=== PATIENT | male | born 1985 | race Two or more races ===

== ENCOUNTER 2022-11-25 00:20 | Emergency (ER) | payer MEDICAID ==
[~2022-11-25] VITALS: Ht 172.7 cm; Wt 86.0 kg
[2022-11-25 01:15] LABS: Basophils # (auto) 0 10 ^3/uL (0-0.2); Basophils % (auto) 0.3 % (0.0-2.0); Eosinophils # (auto) 0.3 10 ^3/uL (0-0.8); Eosinophils % (auto) 2.9 % (0.0-7.0); Hematocrit 44.1 % (41.0-53.0); Hemoglobin 15.5 g/dL (13.5-17.5); Lymphocytes # (auto) 2.3 10 ^3/uL (0.4-5.4); Mean Corpuscular Hemoglobin 30.2 pg (28.0-32.0); Mean Corpuscular Hgb Conc. 35.2 g/dL (32.0-36.0); Monocytes # (auto) 0.8 10 ^3/uL (0-1.3); Monocytes % (auto) 9.1 % (0.0-12.0); Neutrophils # (auto) 5.8 10 ^3/uL (1.6-8.6); Neutrophils % (auto) 62.7 % (37.0-80.0); Nucleated Red Blood Cells % 0.4 %; Red Blood Cells 5.13 10^6/uL (4.5-5.90); Red Cell Distribution Width 13.6 % (11.8-14.3); White Blood Cell 9.3 10^3/uL (4.4-10.8)
[2022-11-25 01:35] LABS: Albumin 3.6 g/dL (3.4-5.0); BUN/Creatinine Ratio 18.8; Calcium 9.1 mg/dL (8.5-10.1); Potassium 3.7 mmol/L (3.5-5.1)
[2022-11-25 01:37] LABS: Bilirubin, Total 0.4 mg/dL (0.2-1.0); Total Protein 8.2 g/dL (6.4-8.2)
[2022-11-25] MEDS ORDERED: AMOX500T86 PO (04:59)
[2022-11-25] MEDS ORDERED: PRED20TA2 PO (04:59)
[2022-11-25] MEDS ORDERED: [UNRECOGNIZED DRUG - CODE] OP (04:59)
[2022-11-25 05:33] VITALS: BP 137/86
== END 2022-11-25 06:39 | disposition home or self-care (01) ==
LOC: ER 00:20
DX: G51.0 Bell's palsy (principal); J01.90 Acute sinusitis, unspecified
CPT/HCPCS: 36415; 70450; 71045; 71250; 72125; 74176; 80053; 84484; 85025